=== PATIENT | female | born 1965 | race African-American/Black ===

== ENCOUNTER 2018-02-25 11:51 | Emergency (ER) | payer BC, OTHER ==
[2018-02-25 12:48] LABS: ALT (SGPT) 20 U/L (8-55); AST (SGOT) 31 U/L (5-34); Albumin 4.4 g/dL (3.5-5.0); Alkaline Phosphatase 50 U/L (40-150); Anion Gap 19 mmol/L (10-20); BUN (Urea Nitrogen) 18 mg/dL (9.8-20.1); Bilirubin, Total 0.4 mg/dL (0.2-1.2); Calc. Creatinine Clearance 0 mL/min (70-130); Calcium 9.8 mg/dL (7.8-10.44); Carbon Dioxide 18 mmol/L (22-29); Chloride 105 mmol/L (98-107); Estimated GFR-MDRD 74; Globulin 4.1 g/dL (2.4-3.5); Glucose 89 mg/dL (70-105); Potassium 4.9 mmol/L (3.5-5.1); Protein, Total 8.5 g/dL (6.0-8.3); Sodium 137 mmol/L (136-145)
[2018-02-25 12:50] LABS: CKMB 1.4 ng/mL (0-6.6); Troponin I Less than 0.010 ng/mL (< 0.028)
[2018-02-25 12:58] LABS: Band 3 % (5-11); Eosinophils 3 % (0-10); Lymphocytes 50 % (21-51); MDiff Complete? YES; Mean Corpuscular Hemoglobin 29.9 pg (27.0-31.0); Mean Corpuscular Volume 85.3 fL (78.0-98.0); Mean Platelet Volume 8.5 fL (7.4-10.4); Monocytes 16 % (0-10); Neutrophil 28 % (42-75); Platelet Count 143 thou/uL (130-400); RBC Distribution Width 12.8 % (11.5-14.5); Red Blood Cell (RBC) Count 4.69 mill/uL (4.20-5.40); White Blood Cell (WBC) Count 3.3 thou/uL (4.8-10.8)
--- NOTE | 2018-02-25 13:03 | RAD ---
AP VIEW OF THE CHEST: INDICATION: Chest pain. IMPRESSION: No acute cardiopulmonary abnormality. The examination is not appreciably changed from a comparison d ated 10/11/16. POS: [facility]
[2018-02-25] MEDS ORDERED: Aspirin 325 MG TAB ONE (13:18)
[2018-02-25 15:39] LABS: Troponin I Less than 0.010 ng/mL (< 0.028)
== END 2018-02-25 16:13 | disposition home or self-care (01) ==
LOC: ERS 11:51
DX: R07.9 Chest pain, unspecified (principal); I25.10 Atherosclerotic heart disease of native coronary artery without angina pectoris; I10 Essential (primary) hypertension; Z79.82 Long term (current) use of aspirin; Z79.899 Other long term (current) drug therapy
CPT/HCPCS: 36415; 71045; 80053; 82553; 84484; 85025; 93005

== ENCOUNTER 2019-10-28 07:50 | Outpatient (CLI) | payer BC ==
--- NOTE | 2019-10-28 10:04 | MRI ---
MRI BRAIN WITH AND WITHOUT IV CONTRAST: HISTORY: Left-sided numbness involving the left arm and left leg. The patient has a history of hypertension. COMPARISON: None. FINDINGS: No restricted diffusion is seen. No evidence of infarct, hemorrhage, mass, midline shift, or abnorma l extraaxial fluid collections is noted. No abnormal postcontrast enhancement is noted. There are n umerous foci of decreased signal intensity in the bony calvarium. There is fluid in the mastoid air cells, right greater than left. IMPRESSION: 1. No evidence of acute intracranial process or brain mass. 2. Numerous lesions in the bony calvarium. ? Multiple myeloma versus metastatic disease. Recommend further evaluation with CT scan of the head and whole body bone scan. CODE T
== END 2019-10-28 07:51 | disposition home or self-care (01) ==
LOC: SCSMRI 07:50
PROVIDERS: ATTEND Internal Medicine Cardiovascular Disease
DX: I63.9 Cerebral infarction, unspecified (principal); G93.9 Disorder of brain, unspecified
CPT/HCPCS: 70553; 82565

== ENCOUNTER 2019-12-04 10:37 | Outpatient (CLI) | payer BC ==
--- NOTE | 2019-12-04 20:22 | CT ---
CT HEAD WITH CONTRAST: 12/04/19 The order form states brain mass. Correlation made to MRI of 10/28/19. That exam described areas of signal loss within the bony calvarium and CT was recommended from that study. There was no acute intracranial process. That exam did show diffuse edema in the right mastoid air cells. Comparison is made to a prior head CT from 06/05/06. TECHNIQUE: Multiple axial tomograms obtained through the head with contrast only. A noncontrast head CT was not obtained. FINDINGS: The ventricles have normal size and position. There is no evidence of brain mass or edema. There is n o abnormal enhancement within the brain parenchyma. Review of the bony calvarium reveals numerous focal areas of high density within the bony calvarium. These are not adequately evaluated given the lack of a noncontrasted study. These could be foci of en hancing masses or they could represent numerous sclerotic lesions. There is mucosal edema involving the right mastoid air cells which corresponds to the MRI findings. The left mastoid air cells and the paranasal sinuses are clear. IMPRESSION: 1. Suboptimal exam without a noncontrasted study. There are numerous foci of increased density s een within the bony calvarium. Metastatic lesions remain a consideration. 2. Mucosal edema in the right mastoid air cells. POS: [facility]
--- NOTE | 2019-12-04 20:34 | CT ---
EXAM: CHEST, ABDOMEN AND PELVIC CT SCAN WITH IV CONTRAST: 12/04/19 HISTORY: Brain mass. COMPARISON: Abdomen and pelvic CT scan, 12/15/16. FINDINGS: Very minimal posterior pleural thickening with small stable less than 0.4 cm circumscribed nodule in the right lower lobe. No mediastinal mass or adenopathy. NO pleural or pericardial effusion. No signi ficant acute pulmonary parenchymal process. Small hiatal hernia. 0.4 cm stable hypodensity in the liver. Status post cholecystectomy. The visualized pancreas, spleen, adrenal glands are unremarkable. Multiple bilateral renal low attenuation foci some of which are too small to characterize but statistically small cysts. No evidence for renal calculus or acute obst ruction. Some of these low attenuation foci within the kidneys have increased in size from the prior study. No evidence for adenopathy, abscess or abnormal fluid collection. The pelvis appears unremarka ble. Small fat containing umbilical hernia. Somewhat elongated right lobe of liver. Urinary bladder i s unremarkable. Scattered stable mostly cortical or subcortical sclerotic foci throughout the visuali zed bony skeleton including pelvis and spine. IMPRESSION: Multiple bilateral renal circumscribed hypodensities some of which are too small to characterize, st atistically these are small cysts. Stable circumscribed cortical and subcortical bony sclerotic hyperdensities unchanged from prior 12/15 study. Small stable nodule in the right lower lobe. Small stable hypodensity in the right lobe of the liver. No evidence for other significant acute process. POS: [facility]
== END 2019-12-04 10:38 | disposition home or self-care (01) ==
LOC: SCSCT 10:37
PROVIDERS: ATTEND Internal Medicine Cardiovascular Disease
DX: G93.89 Other specified disorders of brain (principal); N28.89 Other specified disorders of kidney and ureter; N28.1 Cyst of kidney, acquired; R91.1 Solitary pulmonary nodule; K76.89 Other specified diseases of liver; M89.9 Disorder of bone, unspecified; H70.91 Unspecified mastoiditis, right ear
CPT/HCPCS: 70460; 71260; 74177

== ENCOUNTER 2020-11-19 04:30 | Emergency (ER) | payer BC ==
[2020-11-19 05:11] LABS: #Basophils 0.1 thou/uL (0.0-0.2); #Eosinphils 0.5 thou/uL (0.0-0.7); #Lymphocytes 1.7 thou/uL (1.20-3.40); #Monocytes 0.5 thou/uL (0.11-0.59); #Neutrophils 4.1 thou/uL (1.40-6.50); %Basophils 1.1 % (0.0-1.0); %Eosinophils 7.1 % (0.0-10.0); %Lymphocytes 24.9 % (21.0-51.0); %Monocytes 7.8 % (0.0-10.0); %Neutrophils 59.1 % (42.0-75.0); Hemoglobin 12.5 g/dL (12.0-16.0); Mean Corpuscular HGB CONC 32.6 g/dL (32.0-36.0); Mean Corpuscular Volume 85.8 fL (78.0-98.0); Mean Platelet Volume 8.6 fL (7.4-10.4); Platelet Count 169 thou/uL (130-400); RBC Distribution Width 12.4 % (11.5-14.5); Red Blood Cell (RBC) Count 4.45 mill/uL (4.20-5.40)
[2020-11-19 05:17] LABS: BHCG - Serum Negative (NEGATIVE); Pregs Control Background? CLEAR/WHITE (CLR/WHITE); Pregs Control Bar Appear? YES (CONTROL BAR)
[2020-11-19 05:22] LABS: PTT 29.1 sec (22.9-36.1); Prothrombin Time 13.3 sec (12.0-14.7)
[2020-11-19 05:37] LABS: ALT (SGPT) 16 U/L (8-55); AST (SGOT) 20 U/L (5-34); Albumin 3.8 g/dL (3.5-5.0); Alkaline Phosphatase 50 U/L (40-110); Anion Gap 15 mmol/L (10-20); BUN (Urea Nitrogen) 17 mg/dL (9.8-20.1); Bilirubin, Total 0.2 mg/dL (0.2-1.2); Calc. Creatinine Clearance 0 mL/min (70-130); Calcium 8.9 mg/dL (7.8-10.44); Carbon Dioxide 22 mmol/L (22-29); Chloride 100 mmol/L (98-107); Globulin 3.2 g/dL (2.4-3.5); Glucose 113 mg/dL (70-105); Potassium 4.2 mmol/L (3.5-5.1); Sodium 133 mmol/L (136-145)
[2020-11-19] MEDS ORDERED: Tranexamic Acid 1,000 MG/10 ML VIAL ONE (06:15)
[2020-11-19 06:26] LABS: Bacteria/HPF None Seen HPF (None Seen); Bilirubin Negative (Negative); Blood, Urine 3+ (Negative); Clarity Turbid (Clear); Glucose, Urine (Dipstick) Normal (Negative); Ketone, Urine Negative (Negative); Leukocyte 25 Leu/uL (Negative); Nitrite Negative (Negative); Protein, Urine (Dipstick) Negative (Neg-Trace); RBC/HPF Greater than 50 HPF (0-3); Specific Gravity, Urine 1.012 (1.002-1.036); Squamous Epithelial None Seen HPF (0-3); Urobilinogen Normal mg/dL (Less than 2); WBC/HPF 21-50 HPF (0-3); pH, Urine 5.5 (5.0-9.0)
== END 2020-11-19 06:37 | disposition short-term general hospital (02) ==
LOC: ERS 04:30
DX: S31.41XA Laceration without foreign body of vagina and vulva, initial encounter (principal); I10 Essential (primary) hypertension; Z79.899 Other long term (current) drug therapy; Z79.82 Long term (current) use of aspirin; X58.XXXA Exposure to other specified factors, initial encounter
CPT/HCPCS: 80053; 81003; 81015; 84703; 85025; 85610; 85730; 86850; 86900; 86901; 87086; 99285